=== PATIENT | male | born 1965 ===

== ENCOUNTER 2020-11-05 05:53 | Day surgery (SDC) | payer OTHER ==
[~2020-11-05 05:53] MED LIST: VASOTEC20 M1 PO; VITAMIN B12 PO; VITAMIN D PO
== END 2020-11-05 15:10 | disposition home or self-care (01) ==
LOC: CIR.AMB 05:53
PROVIDERS: ATTEND Orthopaedic Surgery Hand Surgery
DX: M70.22 Olecranon bursitis, left elbow (principal); Z20.822 Contact with and (suspected) exposure to COVID-19